=== PATIENT | male | born 1940 | race Caucasian/White ===

== ENCOUNTER 2021-05-16 12:44 | Day surgery (SDC) | payer MEDICARE ==
[~2021-05-16] VITALS: Ht 177.8 cm; Wt 84.9 kg
[~2021-05-16 12:44] MED LIST: SODIUM CHLORIDE 0.9% 1,000 ML IV SCH
[2021-05-16] MEDS ORDERED: DIPHENHYDRAMINE 50 MG/ML, 1ML IVPush ONE (14:00)
[2021-05-16] MEDS ORDERED: HYDR25TA6 PO (14:02)
[2021-05-16] MEDS ORDERED: ZINC220T2 PO (14:02)
[2021-05-16] MEDS ORDERED: PRAV20TA2 PO (14:02)
[2021-05-16] MEDS ORDERED: MONT10TA17 PO (14:02)
[2021-05-16] MEDS ORDERED: [UNRECOGNIZED DRUG - CODE] PO (14:02)
[2021-05-16] MEDS ORDERED: FLUT1AER INH (14:02)
[2021-05-16] MEDS ORDERED: ALBU8.5H8 NEB (14:02)
[2021-05-16] MEDS ORDERED: OMEP-110 PO (14:02)
[2021-05-16 14:07] VITALS: BP 170/107
[2021-05-16] MEDS ORDERED: LIDOCAINE-MPF 1%, 5ML ONE (14:10)
[2021-05-16 14:23] LABS: BASOPHILS % (AUTO) 1 % (0-1); EOSINOPHILS % (AUTO) 1 % (1-7); LYMPHOCYTES % (AUTO) 18 % (22-44); MEAN CORPUSCULAR HEMOGLOBIN 34.1 pg (27.5-34.5); MEAN CORPUSCULAR HGB CONC 33.3 g/dL (33.2-36.2); MEAN PLATELET VOLUME 7.9 fL (7.4-10.4); MONOCYTES % (AUTO) 5 % (2-9); NEUTROPHILS % (AUTO) 75 % (42-75); PLATELET COUNT 220 x10^3/uL (130-400); RED CELL DISTRIBUTION WIDTH 13.2 % (9.4-14.8)
[2021-05-16 14:32] LABS: ANION GAP 5 mmol/L (5-15); CALCIUM 9.2 mg/dL (8.5-10.1); CHLORIDE 100 mmol/L (98-107); CREATININE 1.18 mg/dL (0.7-1.3)
[2021-05-16 14:33] LABS: PROTHROMBIN TIME 10.7 Seconds (9.6-11.5)
[2021-05-16 15:48] LABS: <PLATELET ESTIMATE> ADEQUATE; <PLT MORPHOLOGY> NORMAL PLT MORPH
[2021-05-16 15:49] LABS: ANISOCYTOSIS 1+
[2021-05-16 15:56] LABS: STOMATOCYTES 1+
== END 2021-05-16 16:32 | disposition home or self-care (01) ==
LOC: CACL 12:44
PROVIDERS: ATTEND Internal Medicine Cardiovascular Disease
DX: R06.02 Shortness of breath (principal); I27.20 Pulmonary hypertension, unspecified; J44.9 Chronic obstructive pulmonary disease, unspecified; J84.10 Pulmonary fibrosis, unspecified; G47.30 Sleep apnea, unspecified; E66.3 Overweight; Z68.27 Body mass index [BMI] 27.0-27.9, adult; Z79.899 Other long term (current) drug therapy; Z87.891 Personal history of nicotine dependence; Z99.81 Dependence on supplemental oxygen
CPT/HCPCS: 36415; 80048; 83880; 85025; 85610; 85730; 93451; C1769; C1894